=== PATIENT | female | born 1985 | race African-American/Black ===

== ENCOUNTER 2020-01-27 05:35 | Inpatient (IN) ==
[2020-01-27] MEDS ORDERED: ONDANSETRON 4 MG/2 ML VIAL IV PRN ×2 (05:45→09:18)
[2020-01-27] MEDS ORDERED: LACTATED RINGERS 1,000 ML IV ONE (05:47)
[2020-01-27] MEDS ORDERED: ePHEDrine 50 MG/ML VIAL IV PRN ×2 (05:47)
[2020-01-27] MEDS ORDERED: CITRIC ACID/SODIUM CITRATE 30 ML UDCUP PO ONE (05:47)
[2020-01-27] MEDS ORDERED: LACTATED RINGERS 250 ML IV PRN (05:47)
[2020-01-27] MEDS ORDERED: ONDANSETRON 4 MG/2 ML VIAL IV ONE (05:47)
[2020-01-27] MEDS ORDERED: FAMOTIDINE 20 MG/2 ML VIAL IV ONE (05:47)
[2020-01-27] MEDS ORDERED: PROMETHAZINE 25 MG/1 ML VIAL IM ONE (05:47)
[2020-01-27] MEDS ORDERED: hydrOXYzine HCL 25 MG/1 ML VIAL IM PRN (05:47)
[2020-01-27] MEDS ORDERED: NALOXONE 0.4 MG/ML VIAL IV PRN (05:47)
[2020-01-27] MEDS ORDERED: diphenhydrAMINE 50 MG/1 ML VIAL IV PRN ×2 (05:47)
[2020-01-27] MEDS ORDERED: LACTATED RINGERS 500 ML IV ONE (05:47)
[2020-01-27] MEDS ORDERED: LACTATED RINGERS 1,000 ML IV SCH ×2 (06:00)
[2020-01-27] MEDS ORDERED: fentaNYL 2 MCG/ROPIV 0.2% EPID 100 ML EPIDURAL SCH (06:00)
[2020-01-27 06:06] LABS: Basophils % 0.3 % (0.0-0.8); Eosinophils # 0.2 10*3/uL (0.0-0.87); Eosinophils % 1.9 % (0.00-10.9); Hematocrit 33.3 VOL% (35.7-47.0); Hemoglobin 10.9 GM/DL (12.0-16.0); Immature Granulocytes % 0.6 %; Immature Granulocytes Absolute 0.06 #; Lymphocytes # 2.1 10*3/uL (1.4-4.0); Lymphocytes % 21.3 % (21.3-54.2); Mean Corpuscular HGB Conc 32.7 GM/DL (32-36); Mean Corpuscular Volume 82.2 FL (87-102); Mean Platelet Volume 9.6 FL (9.6-12.0); Monocytes % 5.3 % (1.7-12.7); Neutrophils % 70.6 % (38.7-73.9); Platelet Count 372 T/CUMM (130-400); Red Blood Count 4.05 MC/CUMM (3.8-5.5); Red Cell Distribution Width 14.7 % (9.3-17.3)
[2020-01-27] MEDS ORDERED: BUPIVACAINE 0.25% 50 ML VIAL ONE (07:00)
[2020-01-27] MEDS ORDERED: fentaNYL 100 MCG/2 ML VIAL ONE ×2 (07:00→10:23)
[2020-01-27] MEDS ORDERED: PHENYLEPHRINE 1 MG/10 ML SYRINGE IV ONE (07:00)
[2020-01-27] MEDS ORDERED: MORPHINE 10 MG/10 ML VIAL ONE (07:01)
[2020-01-27] MEDS ORDERED: BUPIVACAINE SPINAL 0.75% 2 ML AMP SPINAL ONE (07:01)
[2020-01-27] MEDS ORDERED: DEXAMETHASONE 4 MG/1 ML VIAL ONE (07:01)
[2020-01-27] MEDS ORDERED: OXYTOCIN/LR 20 UNIT/1,000 ML BAG IV ONE ×3 (07:04→09:18)
[2020-01-27] MEDS: ceFAZolin 3,000 MG in SYRINGE 1 EACH IV SCH ×3 (07:15→21:56)
[2020-01-27] MEDS: LACTATED RINGERS 1,000 ML IV SCH ×2 (07:15→07:16)
[2020-01-27] MEDS ORDERED: TRANEXAMIC ACID 1,000 MG/10 ML VIAL ONE (07:39)
[2020-01-27] MEDS ORDERED: miSOPROStoL 200 MCG TABLET ONE (07:39)
[2020-01-27] MEDS ORDERED: CARBOPROST TROMETHAMINE 250 MCG/ML AMP IM ONE (07:40)
[2020-01-27 08:23] LABS: Bilirubin,Urine Negative (Negative); Blood, Urine Negative (Negative); Glucose,Urine (UA) Negative (Negative); Ketones,Urine Negative (Negative); Nitrite,Urine Negative (Negative); Protein,Urine Negative; RBC,Urine <1 /HPF (0-4); Squamous Epithelial Cell,Urine Occasional /HPF (0-10); Urine Appearance CLEAR (Clear); Urine Color Colorless (Yellow); Urine Specific Gravity 1.004 (1.001-1.035); Urine Urobilinogen < 2.0 EU/DL (0.2-1.0); WBC,Urine <1 /HPF (0-6)
[2020-01-27 08:25] LABS: Cord Venous Blood HCO3 23.6 MMOL/L; Cord Venous Blood PCO2 46.5 MMHG; Cord Venous Blood PO2 33.6
[2020-01-27] MEDS ORDERED: IBUPROFEN 800 MG TABLET PO PRN (09:18)
[2020-01-27] MEDS ORDERED: HYDROCORTISONE 2.5% RECTAL CREAM 30 GM TUBE TOP PRN (09:18)
[2020-01-27] MEDS ORDERED: WITCH HAZEL PADS 100/JAR TOP PRN (09:18)
[2020-01-27] MEDS ORDERED: oxyCODONE/ACETAMINOPHEN 5-325 MG TABLET PO PRN (09:18)
[2020-01-27] MEDS ORDERED: ACETAMINOPHEN 325 MG TABLET PO PRN (09:18)
[2020-01-27] MEDS ORDERED: DIPH/TET/ACEL PERT BOOSTER VACCINE 0.5 ML VIAL IM ONE (09:18)
[2020-01-27] MEDS ORDERED: BENZOCAINE 20%/MENTHOL 0.5% SPRAY 56 GM CAN TOP PRN (09:18)
[2020-01-27] MEDS ORDERED: LANOLIN 50% CREAM 0.3 OZ TUBE TOP PRN (09:18)
[2020-01-27] MEDS ORDERED: MEASLES/MUMPS/RUBELLA VACCINE 0.5 ML VIAL SUBCUT ONE (09:18)
[2020-01-27] MEDS ORDERED: BISACODYL 10 MG SUPP RECTAL PRN (09:18)
[2020-01-27] MEDS ORDERED: RHO(D) IMMUNE GLOBULIN 300 MCG SYRINGE IM ONE (09:18)
[2020-01-27] MEDS ORDERED: HYDROmorphone 2 MG/1 ML VIAL IV PRN (10:13)
[2020-01-27] MEDS ORDERED: propofoL 200 MG/20 ML VIAL IV ONE (10:23)
[2020-01-27] MEDS ORDERED: SUCCINYLCHOLINE 200 MG/10 ML VIAL ONE (10:24)
[2020-01-27] MEDS ORDERED: SEVOFLURANE 1 UNIT/15 MINUTE INH ONE (10:24)
[2020-01-27] MEDS: LABETALOL 100 MG TABLET PO SCH ×2 (16:45→21:56)
[2020-01-27] MEDS: valACYclovir 500 MG TABLET PO SCH ×2 (16:45→21:56)
[2020-01-27] MEDS: DOCUSATE SODIUM 100 MG CAPSULE PO SCH (21:47)
[2020-01-27] MEDS: oxyCODONE/ACETAMINOPHEN 5-325 MG TABLET PO PRN (21:55)
[2020-01-28 06:23] LABS: Basophils % 0.2 % (0.0-0.8); Eosinophils # 0.1 10*3/uL (0.0-0.87); Eosinophils % 1.6 % (0.00-10.9); Hematocrit 24.5 VOL% (35.7-47.0); Immature Granulocytes % 0.5 %; Immature Granulocytes Absolute 0.04 #; Lymphocytes # 1.5 10*3/uL (1.4-4.0); Lymphocytes % 17.5 % (21.3-54.2); Mean Corpuscular HGB Conc 33.5 GM/DL (32-36); Mean Corpuscular Volume 81.4 FL (87-102); Mean Platelet Volume 9.9 FL (9.6-12.0); Monocytes % 5.8 % (1.7-12.7); Neutrophils % 74.4 % (38.7-73.9); Red Cell Distribution Width 14.9 % (9.3-17.3); White Blood Count 8.3 T/CUMM (4-12)
[2020-01-28 06:47] LABS: Hemoglobin 8.2 GM/DL (12.0-16.0); Platelet Count 287 T/CUMM (130-400); Red Blood Count 3.01 MC/CUMM (3.8-5.5)
[2020-01-28] MEDS: DOCUSATE SODIUM 100 MG CAPSULE PO SCH ×2 (08:46→20:40)
[2020-01-28] MEDS: MAGNESIUM HYDROXIDE SUSP 30 ML UDCUP PO PRN ×2 (08:46→20:40)
[2020-01-28] MEDS: SIMETHICONE CHEW 80 MG TABLET PO PRN (08:46)
[2020-01-28] MEDS: FERROUS SULFATE 325 MG TABLET PO SCH ×2 (08:46→20:40)
[2020-01-28] MEDS: LABETALOL 100 MG TABLET PO SCH ×2 (08:46→20:40)
[2020-01-28] MEDS: oxyCODONE/ACETAMINOPHEN 5-325 MG TABLET PO PRN (08:46)
[2020-01-28] MEDS ORDERED: RHO(D) IMMUNE GLOBULIN 300 MCG SYRINGE IM ONE (10:51)
[2020-01-28] MEDS: POTASSIUM CHLORIDE 20 MEQ TABLET PO PRN ×4 (11:28→17:25)
[2020-01-28] MEDS: valACYclovir 500 MG TABLET PO SCH ×2 (11:28→20:40)
[2020-01-28] MEDS ORDERED: ONDANSETRON 4 MG TABLET PO PRN (20:14)
[2020-01-29] MEDS: DOCUSATE SODIUM 100 MG CAPSULE PO SCH (09:04)
[2020-01-29] MEDS: valACYclovir 500 MG TABLET PO SCH (09:04)
[2020-01-29] MEDS: MAGNESIUM HYDROXIDE SUSP 30 ML UDCUP PO PRN (09:04)
[2020-01-29] MEDS: SIMETHICONE CHEW 80 MG TABLET PO PRN (09:04)
[2020-01-29] MEDS: FERROUS SULFATE 325 MG TABLET PO SCH (09:04)
[2020-01-29] MEDS: LABETALOL 100 MG TABLET PO SCH ×2 (09:05→12:33)
[2020-01-29] MEDS ORDERED: MAGNESIUM CITRATE 300 ML BOTTLE PO ONE (09:17)
[2020-01-29 12:45] VITALS: BP 144/89
== END 2020-01-29 16:05 | disposition home or self-care (01) | DRG 787 ==
LOC: N.LD 05:35 → N.OB 12:27
PROVIDERS: ADMIT Specialist; ATTEND Specialist
PROC: LDCSECT (ICD-10-PCS; 2020-01-27 07:30)